=== PATIENT | male | born 1990 | race Caucasian/White ===

== ENCOUNTER 2020-03-28 08:03 | Emergency (ER) | payer OTHER ==
[2020-03-28 08:12] VITALS: BP 123/64; PULSE 77; TEMP 98.4; BMI 24.5
[2020-03-28] MEDS ORDERED: AMOXICILLIN 500 MG CAPSULE (FP) PO ONE (08:20)
[2020-03-28] MEDS ORDERED: IBUPROFEN 600 MG TABLET (FP) PO ONE ×2 (08:20→08:25)
[2020-03-28] MEDS ORDERED: AMOXICILLIN 250 MG CAPSULE ONE (08:22)
--- NOTE | 2020-03-28 08:26 | PDOC ---
History of Present Illness - General Chief Complaint: Toothache Stated Complaint: RT. EAR PAIN/ TOOTHACHE Time Seen by Provider: 03/28/20 08:16 History Source: Patient Exam Limitations: No Limitations - History of Present Illness Initial Comments: 03/28/20 08:21 Patient is a 29-year-old male who presents to the ED with right upper dental pain that he has had for about 1 month. He states he believes he had a filling in the upper molar that may have fallen out. He has been having sensitivity to air, cold and heat. He states his pain is radiating to his right ear. He was s een by dentist who told him he needed to have a deep gum cleaning prior to intervening on the tooth with the pain. The patient states that he is waiting for his change in insurance and will be able to then follow-up with a dentist again. He has been taking Tylenol with very little relief. The patient denies any past medical history or allergies to medications. Past History - Medical History Allergies/Adverse Reactions: Allergies Allergy/AdvReac Type Severity Reaction Status Date / Time No Known Allergies Allergy Verified 03/28/20 08:09 Home Medications: Ambulatory Orders Amoxicillin - [Amoxicillin 500mg Capsule -] 500 mg PO TID #21 capsule 03/28/20 Ibuprofen [Motrin -] 600 mg PO TID PRN #21 tablet 03/28/20 COPD: No Other medical history: denies - Immunization History Immunization Up to Date: Yes - Psycho-Social/Smoking History Smoking History: Never smoked Information on smoking cessation initiated: No - Substance Abuse Hx (Audit-C & DAST Scrn) How often the patient has a drink containing alcohol: Never Score: In Men: 4 or > Positive; In Women: 3 or > Positive: 0 Screen Result (Pos requires Nsg. Audit-10AR): Negative In the last yr the pt used illegal drug/Rx for NonMed reason: Yes Score: Yes response is considered Positive: 1 Screen Result (Positive result requires Nsg. DAST-10): Positive Review of Systems - Review of Systems Comments:: 03/28/20 08:23 - Review of Systems Able to Perform ROS?: Yes Constitutional: No: Fever, Chills, Loss of Appetite, Night Sweats, Weakness HEENTM: No: Eye Pain, Vision changes, Ear Pain, Throat Pain, Throat Swelling, Mouth Pain, Difficulty Swallowing; positive: Right upper molar pain Respiratory: No: Cough, Shortness of Breath, Wheezing, Sputum Production Cardiac (ROS): No: Chest Pain, Chest Tightness, Palpitations, Irregular Heart Beat, Edema ABD/GI: No: Nausea, Vomiting, Abdominal Pain, Diarrhea : No Dysuria, No Hematuria, No Frequency, No Urgency Musculoskeletal: No: Muscle Pain, Back Pain, Joint Pain, Muscle Weakness, Neck Pain Integumentary: No: Lesions, Rash Neurological: No: Headache, Numbness, Tingling, Weakness, Speech Difficulties *Physical Exam - Vital Signs Last Vital Signs Temp Pulse Resp BP Pulse Ox 98.4 F 77 18 123/64 98 03/28/20 08:10 03/28/20 08:10 03/28/20 08:10 03/28/20 08:10 03/28/20 08:10 - Physical Exam 03/28/20 08:23 - Physical Exam General Appearance: Nourished, Appropriately Dressed, No Distress HEENT: EOMI, Normal Voice, No Pharyngeal Erythema, No Muffled/Hoarse voice, No Tonsillar Exudate, No Tonsillar Erythema, No Nasal Congestion, No Rhinorrhea, Hearing Grossly Normal, TMs Normal, No TM Bulging, No TM Dullness, No TM Erythema; tooth #1 with obvious dental fracture appreciated. Likely root exposed. Tenderness with tapping the tooth. No obvious abscess appreciated. N o drainage. Neck: Supple, No Lymphadenopathy (R), No Lymphadenopathy (L), No Rigidity, No Decreased range of motion Respiratory/Chest: Lungs Clear, Normal Breath Sounds. No Respiratory Distress, No Accessory Muscle Use Cardiovascular: Regular Rhythm, Regular Rate, S1, S2 Musculoskeletal: Normal Inspection. No Decreased Range of Motion Extremity: Normal Capillary Refill, Normal Inspection Integumentary: Normal Color, Dry. No Rash Neurologic: cfo controller II-XII NML intact, Fully Oriented, Alert, Normal Mood/Affect, Normal Response Medical Decision Making - Medical Decision Making 03/28/20 08:24 Assessment: Patient is a 29-year-old male with tooth #1 pain with dental fracture and likely root exposure. Plan: -Motrin 600 mg p.o. given in the ED -Amoxicillin 500 mg p.o. given in the ED -Patient to follow-up with the dentist as soon as possible for definitive treatment -Prescription for Motrin and amoxicillin sent to the patient's pharmacy -He understands and agrees with this treatment plan and the patient stable for discharge Discharge - Discharge Information Problems reviewed: Yes Clinical Impression/Diagnosis: Pain, dental Condition: Stable Disposition: HOME - Additional Discharge Information Prescriptions: Amoxicillin - [Amoxicillin 500mg Capsule -] 500 mg PO TID #21 capsule Ibuprofen [Motrin -] 600 mg PO TID PRN #21 tablet PRN Reason: Pain - Follow up/Referral - Patient Discharge Instructions Patient Printed Discharge Instructions: DI for Dental Pain Additional Instructions: [facility] [address] [place], [address] [place] [address], [id number] Take the antibiotics as prescribed and complete the entire course. You can take the Motrin as needed for pain but be sure to do so with food in your stomach. Follow-up with dentistry as soon as possible for more definitive treatment. [facility] listed are 2 locations for the dental urgent care that may be able to work with you regarding payment and insurance. They can see you on an emergent/urgent basis. Avoid very hot or very cold foods/drinks as this can cause her pain to increase. - Post Discharge Activity Work/Back to School Note: Back to Work
--- OUTSIDE RECORDS SUMMARY | 2020-03-28 08:41 | XMS ---
:1990 [facility] Name Relationship Address Phone UE Unavailable Unavailable Unavailable Re-disclosure Warning The records that you are about to access may contain information from federally- assisted alcohol or drug abuse programs. If such information is present, then the following federally mandated warning applies: This information has been disclosed to you from records protected by federal confidentiality rules (42 CFR part 2). The federal rules prohibit you from making any further disclosure of this information unless further disclosure is expressly permitted by the written consent of the person to whom it pertains or as otherwise permitted by 42 CFR part 2. A general authorization for the release of medical or other information is NOT sufficient for this purpose. The Federal rules restrict any use of the information to criminally investigate or prosecute any alcohol or drug abuse patient.The records that you are about to access may contain highly sensitive health information, the redisclosure of which is protected by Article 27-F of the [facility] Public Health law. If you continue you may haveaccess to information: Regarding HIV / AIDS; Provided by facilities licensed or operated by the [facility] Office of Mental Health; or Provided by the [facility] Office for People With Developmental Disabilities. If such information is present, then the following [facility] mandated warning applies: This information has been disclosed to you from confidential records which are protected by state law. State law prohibits you from making any further disclosure of this information without the specific written consent of the person to whom it pertains, or as otherwise permitted by law. Any unauthorized further disclosure in violation of state law may result in a fine or skilled nursing sentence or both. A general authorization for the release of medical or other information is NOT sufficient authorization for further disclosure. Insurance Providers Payer name Policy type Policy ID Covered Covered constitution party's Policy P rosario / Coverage constitution party ID relationship to Felipe Inf ormation type felipe MEDICAID [id number]
== END 2020-03-28 08:35 | disposition home or self-care (01) ==
LOC: JERFT 08:03
DX: K08.89 Other specified disorders of teeth and supporting structures (principal)
CPT/HCPCS: 99283-25